=== PATIENT | male | born 1940 | race Caucasian/White ===

== ENCOUNTER → 2018-01-17 | Outpatient (CLI) | payer MEDICARE, OTHER | LOC: M RAD 12:47 | DX: Z12.2 Encounter for screening for malignant neoplasm of respiratory organs (principal); J44.9 Chronic obstructive pulmonary disease, unspecified; Z87.891 Personal history of nicotine dependence | CPT/HCPCS: G0297 ==

== ENCOUNTER → 2018-10-30 | Outpatient (CLI) | payer MEDICARE, OTHER ==
--- NOTE | 2018-10-30 13:45 | REP ---
REASON FOR EXAM: History of renal disease. No prior renal ultrasound examination for comparison. FINDINGS: Multiple ultrasonographic images of the right kidney show the right kidney to measure 10.7 x 6.5 x 5.9. The renal cortical echotexture is unremarkable. There are no masses. There is good corticomedullary differentiation. There is no hydronephrosis. There are no perinephric fluid collections. Multiple ultrasonographic images of the left kidney show the left kidney to measure 10.8 x 5.7 x 5.2 cm. The renal cortical echotexture is unremarkable. There are no masses. There is good corticomedullary differentiation. There is no hydronephrosis. There are no perinephric fluid collections. IMPRESSION: Unremarkable renal ultrasonography. Electronically Signed by Gus Madrigal DO 10/30/2018 05:00 P
== END ==
LOC: M RAD 11:05
PROVIDERS: ATTEND Internal Medicine Nephrology
DX: N18.3 Chronic kidney disease, stage 3 (moderate) (principal)

== ENCOUNTER → 2019-07-03 | Outpatient (CLI) | payer MEDICARE, OTHER ==
[~2019-07-03] MED LIST: ISOVUE-370 76% 100ML VIAL (Q9967) As Ordered ONE
--- NOTE | 2019-07-04 10:52 | REP ---
CT CHEST WITH IV CONTRAST: HISTORY: Shortness of breath. Comparison chest CT study January 17, 2018. Comparison chest x-ray February 04, 2019. CT contrast dose: 75 mL of intravenous Isovue 370. CT FINDINGS: Digital preliminary counterperson radiograph demonstrates elevation left hemidiaphragm unchanged from the February 04, 2019 prior chest x-ray. Heart size is borderline. There is some plate-like atelectasis in the left lower lobe and lingula at the left base just adjacent to the elevated diaphragm. Lung mcconnell are otherwise clear. There is some stringy mucoid material in the left mainstem bronchus along its superior wall. No other endobronchial abnormality is seen. There are granulomatous lymph node calcifications in the right hilus. Granulomatous calcifications are scattered throughout the spleen. There is a calcified granuloma in the right upper lobe anteriorly air. No other pulmonary nodule is appreciated. IMPRESSION: Elevated left hemidiaphragm. Left base plate-like atelectasis. Borderline heart size. Vascular calcification. Some mucus is visible in the left mainstem bronchus. Old granulomatous calcifications. Electronically Signed by Emmett Callahan MD 07/04/2019 12:08 P
== END ==
LOC: M RAD 16:46
PROVIDERS: ATTEND Internal Medicine Nephrology
DX: J98.6 Disorders of diaphragm (principal); I52 Other heart disorders in diseases classified elsewhere; D73.9 Disease of spleen, unspecified; J84.10 Pulmonary fibrosis, unspecified
CPT/HCPCS: 71260; Q9967

== ENCOUNTER → 2020-02-10 | Outpatient (CLI) | payer MEDICARE, OTHER ==
--- NOTE | 2020-04-02 14:26 | REP ---
SCREENING LOW DOSE CHEST CT WITHOUT CONTRAST: HISTORY: Personal history of nicotine dependence. COMPARISON: None. Report is delayed due to a malware attack on the facility. FINDINGS: There are multiple scattered granulomatous benign calcifications in the right lung. There are granulomatous lymph node calcifications in the right hilus and right mediastinum. Vascular calcification is noted. There is linear fibrosis in the left lower lobe and lingula at the left lung base. There is a 3 mm noncalcified pulmonary nodule displayed on page 41 of 101 in series 201 of today's study in the right upper lobe somewhat posteriorly. No other noncalcified pulmonary nodule is seen. IMPRESSION: Lung-RADS 2 findings. One noncalcified 4 mm nodule right upper lobe. Chronic granulomatous calcifications. Repeat screening study recommended in one year. MTDD
== END ==
LOC: M RAD 11:41
PROVIDERS: ATTEND Internal Medicine Pulmonary Disease
DX: Z12.2 Encounter for screening for malignant neoplasm of respiratory organs (principal); Z87.891 Personal history of nicotine dependence; R91.8 Other nonspecific abnormal finding of lung field